=== PATIENT | male | born 1960 | race American Indian/Alaskan Native ===

== ENCOUNTER 2021-08-03 01:56 | Emergency (ER) | payer SELFPAY ==
[2021-08-03] MEDS ORDERED: OXYMETAZOLINE 0.05% NASAL SPRAY NS ONE (02:05)
[2021-08-03] MEDS ORDERED: SODIUM CHLORIDE 0.9% 1000 ML 1,000 ML IV ONE (02:17)
--- NOTE | 2021-08-03 02:18 | Emergency Department Report ---
ED ENT HPI - General Chief complaint: Nosebleed Stated complaint: BAD NOSE BLEED FOR PAST 7 HRS Time Seen by Provider: 08/03/21 02:05 Source: patient Mode of arrival: Ambulatory Limitations: No Limitations - History of Present Illness Initial comments: Patient presents with epistaxis for the last 7 hours. He noticed left ear pain. He then noticed dripping from his left nostril and noticed it was blood. For the last 7 hours, he has had ongoing bleeding. He has not been able to control it. He states that it bled so much it went over to the right side. He has blood dripping down the back of his throat. He is not anticoagulated. There is no trauma. He does not have any bleeding from other sites. He has never had a nosebleed like this before. Patient states that he does feel slightly dizzy at this time. - Related Data Allergies Allergy/AdvReac Type Severity Reaction Status Date / Time No Known Allergies Allergy Verified 08/03/21 02:50 ED Dental HPI - General Chief complaint: Nosebleed Stated complaint: BAD NOSE BLEED FOR PAST 7 HRS Time Seen by Provider: 08/03/21 02:05 Source: patient Mode of arrival: Ambulatory Limitations: No Limitations - Related Data Allergies Allergy/AdvReac Type Severity Reaction Status Date / Time No Known Allergies Allergy Verified 08/03/21 02:50 ED Review of Systems ROS: Stated complaint: BAD NOSE BLEED FOR PAST 7 HRS Other details as noted in HPI Comment: All other systems reviewed and negative Constitutional: denies: fever Eyes: denies: vision change ENT: as per HPI Respiratory: denies: cough Cardiovascular: denies: chest pain Endocrine: denies: unexplained weight gain Gastrointestinal: denies: hematemesis, melena Genitourinary: denies: hematuria Musculoskeletal: denies: back pain Skin: denies: rash Neurological: denies: headache Hematological/Lymphatic: denies: easy bruising ED Past Medical Hx - Past Medical History Hx Hypertension: Yes - Family History Family history: hypertension ED Physical Exam - General Limitations: No Limitations, Other (Pulse ox noted and normal) General appearance: alert, in no apparent distress, anxious - Head Head exam: Present: atraumatic, normocephalic - Eye Eye exam: Present: normal appearance, EOMI. Absent: scleral icterus - ENT ENT exam: Present: normal external ear exam, other (Blood down the posterior pharynx was noted. There is bleeding from the left nostril. The site cannot be determined) - Neck Neck exam: Present: normal inspection - Respiratory Respiratory exam: Present: normal lung sounds bilaterally. Absent: respiratory distress - Cardiovascular Cardiovascular Exam: Present: normal rhythm, tachycardia - GI/Abdominal GI/Abdominal exam: Present: soft - Extremities Exam Extremities exam: Present: normal capillary refill - Back Exam Back exam: Present: full ROM - Neurological Exam Neurological exam: Present: alert, oriented X3, CN II-XII intact, normal gait. Absent: motor sensory deficit - Psychiatric Psychiatric exam: Present: normal mood, anxious - Skin Skin exam: Present: warm, dry ED Course Vital Signs 08/03/21 08/03/21 02:06 02:45 Temperature 98.3 F Pulse Rate 106 H 100 H Respiratory 17 19 Rate Blood Pressure 164/89 128/82 [Right] O2 Sat by Pulse 97 97 Oximetry - Reevaluation(s) Reevaluation #1: 08/03/21 02:17 IV and labs were ordered. Patient blew out large blood clots. A Rhino Rocket was then placed on the left side. This was 5.5 cm in size. Bleeding was well controlled at that time. Reevaluation #2: 08/03/21 02:33 Area was added to the Rhino Rocket. Tranexamic acid was ordered. Reevaluation #3: 08/03/21 03:32 Bleeding has stopped. Labs were noted and discussed with the patient. - Procedure Description Procedures done: Procedure note: Anterior packing. Indication: Persistent epistaxis. Patient was seated upright. He did blow his nose will all of the clots out. The left nostril was visualized. I could not determine the site of bleeding for cautery. A Rhino Rocket 5.5 cm was inserted and inflated with 4 mL of air. This provided good hemostasis. He tolerated procedure well. There are no complications. ED Medical Decision Making - Lab Data Result diagrams: 08/03/21 02:23 08/03/21 02:23 Rhythm strip: Sinus tachycardia without ectopy monitor observe 10 seconds. - Medical Decision Making Patient presents with epistaxis which is brisk and on the left side. It was ultimately controlled with Rhino Rocket. He had had prolonged bleeding for 7+ hours. He was found to be anemic. I do not have old labs to determine how anemic. Patient states that he was never told that he was anemic before. At this time, he will be started on iron as an outpatient. Is not hypotensive. He does not require admission or transfusion. He will be referred to ENT and primary care for follow-up. Critical Care Time: No Critical care attestation.: If time is entered above; I have spent that time in minutes in the direct care of this critically ill patient, excluding procedure time. ED Disposition Clinical Impression: Anterior epistaxis, Acute blood loss anemia Disposition: HOME / SELF CARE / HOMELESS Is pt being admited?: No Condition: Stable Instructions: Nosebleed, Adult Additional Instructions: Drink plenty water. Return for problems. Avoid salt. Follow-up with your regular doctor for recheck. Follow-up with the referral physician for e valuation and pack removal. Take iron every day. Referrals: PRIMARY CAREMD [Referring] - 3-5 Days LEONCIO GREEN MD [Staff Physician] - 3-5 Days JUANCHO WILBURN MD [Staff Physician] - 3-5 Days
[2021-08-03 02:34] LABS: Mean Corpuscular HGB Conc 29 % (32-34); Platelet Count 328 K/mm3 (140-440)
[2021-08-03 02:38] LABS: Hemoglobin 7.9 gm/dl (11.8-15.2); Mean Corpuscular Volume 60 fl (84-94); Red Cell Distribution Width 22.4 % (13.2-15.2)
[2021-08-03 02:52] LABS: BUN/Creatinine Ratio 15; Blood Urea Nitrogen 17 mg/dL (9-20); Calcium 8.4 mg/dL (8.4-10.2); Hemolysis Index 0
[2021-08-03] MEDS ORDERED: TRANEXAMIC ACID 1,000 MG in SODIUM CHLORIDE 0.9% 100 ML IV NR (03:00)
[2021-08-03 04:46] VITALS: BP 128/81
== END 2021-08-03 04:40 | disposition home or self-care (01) ==
LOC: ED 01:56
DX: R04.0 Epistaxis (principal); D62 Acute posthemorrhagic anemia; I10 Essential (primary) hypertension
CPT/HCPCS: 30901; 36415; 80048; 85027; 96365; 99283; J3490; J7030; Q0162